=== PATIENT | female | born 2000 | race American Indian/Alaskan Native ===

== ENCOUNTER 2022-02-18 11:52 | Outpatient (CLI) | payer OTHER ==
[2022-02-18 12:16] VITALS: BP 128/62
[2022-02-18] MEDS ORDERED: LACTATED RINGERS 500 ML IV ONE (12:27)
[2022-02-18] MEDS ORDERED: diphenhydrAMINE 50 MG/ML VIAL IV ONE (12:56)
[2022-02-18 13:03] LABS: Bilirubin,Urine NEG (Negative); Blood,Urine NEG (Negative); Color,Urine Yellow (Yellow); Protein,Urine <15 mg/dL mg/dL (Negative); Urobilinogen,Urine < 2.0 mg/dL (<2.0)
[2022-02-18] MEDS ORDERED: ceFAZolin/Water 2 GM/20 ML 2 GM/20 ML SYRINGE IV ONE (14:42)
== END 2022-02-18 15:34 | disposition home or self-care (01) ==
LOC: TRG 11:52 → APU 11:52 → TRG 15:34
PROVIDERS: ATTEND Obstetrics & Gynecology
DX: O26.893 Other specified pregnancy related conditions, third trimester (principal); L29.8 Other pruritus; O99.013 Anemia complicating pregnancy, third trimester; D64.9 Anemia, unspecified; Z87.891 Personal history of nicotine dependence; Z3A.32 32 weeks gestation of pregnancy
CPT/HCPCS: 59025; 81001; 96365; 96367; J0690; J1200; J7120; 96360; 96374